=== PATIENT | female | born 1990 | race Caucasian/White ===

== ENCOUNTER → 2016-12-10 | Outpatient (CLI) | payer MEDICAID | LOC: LAB 13:18 | PROVIDERS: ATTEND Nurse Practitioner Family | DX: Z32.00 Encounter for pregnancy test, result unknown (principal) | CPT/HCPCS: 36415; 84703 ==

== ENCOUNTER → 2016-12-15 | Outpatient (CLI) | payer MEDICAID ==
[2016-12-15 17:11] LABS: BASOPHILS % (AUTO) 1 % (0-2); EOSINOPHILS # (AUTO) 0.1 10^3uL; EOSINOPHILS % (AUTO) 1 % (0-4); LYMPHOCYTES # (AUTO) 1.6 X10^3; MEAN CORPUSCULAR HEMOGLOBIN 29.5 PG (26.0-34.0); MEAN CORPUSCULAR HGB CONC 34.8 g/dL (31.0-37.0); MEAN CORPUSCULAR VOLUME 85 FL (80-100); MEAN PLATELET VOLUME 11.6 FL (6.0-9.5); MONOCYTES # (AUTO) 0.5 X10^3; MONOCYTES % (AUTO) 7 % (3-11); NEUTROPHILS # (AUTO) 4.8 X10^3; NEUTROPHILS % (AUTO) 67 % (51-67); PLATELET COUNT 199 10^3uL (150-450); WHITE BLOOD COUNT 7.07 10^3uL (4.0-11.0)
[2016-12-15 17:32] LABS: BILIRUBIN,URINE Negative (Negative); CLARITY,URINE Clear; COLOR,URINE Yellow; GLUCOSE, URINE (UA) Negative (Negative); LEUKOCYTE ESTERASE, URINE Negative (Negative); UROBILINOGEN,URINE 0.2 mg/dL (0.2-1.0)
[2016-12-15 17:55] LABS: URINE CENTRIFUGED VOLUME 12 mL
[2016-12-15 17:56] LABS: RBC,URINE None Seen /HPF
[2016-12-16 15:00] LABS: HEPATITIS B SURFACE ANTIGEN C Negative
[2016-12-16 23:16] LABS: RUBELLA AB IGG 1.95 OD Ratio (>1.09)
== END ==
LOC: LAB 16:57
PROVIDERS: ATTEND Obstetrics & Gynecology
DX: O36.80X0 Pregnancy with inconclusive fetal viability, not applicable or unspecified (principal)
CPT/HCPCS: 36415; 81003; 81015; 85025; 86592; 86762; 86850; 86900; 86901; 87088; 87340; G0433

== ENCOUNTER → 2016-12-25 | Outpatient (CLI) | payer SELFPAY | LOC: RAD 14:20 | PROVIDERS: ATTEND Obstetrics & Gynecology | DX: O36.80X0 Pregnancy with inconclusive fetal viability, not applicable or unspecified (principal); Z3A.01 Less than 8 weeks gestation of pregnancy | CPT/HCPCS: 76801 ==

== ENCOUNTER → 2017-03-24 | Outpatient (CLI) | payer MEDICAID ==
--- NOTE | 2017-03-24 17:47 | Diagnostic Imaging Report ---
INDICATION: survey. OB sonography performed in the routine fashion and compared to the prior study of 12/25/16. FINDINGS: Single live intrauterine fetus is seen measuring 20 weeks 0 days in size with normal interval growth since the prior study. Sonographic EDC is 08/11/17. survey showed no detectable abnormalities although the spine was not well visualized. heart rate was 143 beats per minute. Cervical length is 4.7 cm. Fetus is in breech presentation at this time. Placenta is fundal with no evidence of previa. Amniotic fluid index is 12 cm. IMPRESSION: Single live intrauterine fetus measuring 20 weeks 0 days in size with normal interval growth since the prior study. There is no detectable abnormality. Dictated by: Dictated on workstation # [id number]
== END ==
LOC: RAD 14:19
PROVIDERS: ATTEND Obstetrics & Gynecology
DX: Z34.82 Encounter for supervision of other normal pregnancy, second trimester (principal); J45.20 Mild intermittent asthma, uncomplicated; Z3A.20 20 weeks gestation of pregnancy
CPT/HCPCS: 76805